=== PATIENT | female | born 1975 | race Caucasian/White ===

== ENCOUNTER 2018-04-25 14:13 | Emergency (ER) | payer SELFPAY ==
[~2018-04-25] VITALS: Ht 180.3 cm; Wt 113.4 kg
[2018-04-25 14:22] VITALS: BP 150/98
[2018-04-25] MEDS ORDERED: IV NORMAL SALINE 1,000ML 1,000 ML IV SCH (14:38)
--- NOTE | 2018-04-25 14:42 | PHYS DOC ---
Past History Past Medical History: No Pertinent History Past Surgical History: Hysterectomy Smoking: Non-smoker Alcohol Use: None Drug Use: None Adult General Chief Complaint Chief Complaint: ABDOMINAL PAIN HPI HPI Patient is a 42 year old female who presents with complaining of abdominal pain and nausea and vomiting. Patient complaining of right sided abdominal pain as a pressure feeling pain for 3 days with 7 episodes of diarrhea every day. Patient complaining of nausea since last night and couple episodes of vomiting. Patient rated her pain 6/10 and states she had the same symptoms with her previous episodes of C. difficile infection. Patient denies taking any recent antibiotic , fever and chills, urinary symptoms, vaginal bleeding or discharge. Review of Systems Review of Systems Constitutional: Denies fever or chills [] Eyes: Denies change in visual acuity, redness, or eye pain [] HENT: Denies nasal congestion or sore throat [] Respiratory: Denies cough or shortness of breath [] Cardiovascular: No additional information not addressed in HPI [] GI: Reports abdominal pain, nausea, vomiting, diarrhea [] : Denies dysuria or hematuria [] Musculoskeletal: Denies back pain or joint pain [] Integument: Denies rash or skin lesions [] Neurologic: Denies headache, focal weakness or sensory changes [] Endocrine: Denies polyuria or polydipsia [] All other systems were reviewed and found to be within normal limits, except as documented in this note. Physical Exam Physical Exam Constitutional: Well developed, well nourished, mild distress, non-toxic appearance. [] HENT: Normocephalic, atraumatic, oropharynx moist, no oral exudates, nose normal. [] Eyes: PERRLA, EOMI, conjunctiva normal, no discharge. [] Neck: Normal range of motion, no tenderness, supple, no stridor. [] Cardiovascular:Heart rate regular rhythm, no murmur [] Lungs & Thorax: Bilateral breath sounds clear to auscultation [] Abdomen: Bowel sounds normal, soft, guarding in right side of abdomen, no tenderness, no masses, no pulsatile masses. [] Skin: Warm, dry, no erythema, no rash. [] Back: No tenderness, no CVA tenderness. [] Extremities: No tenderness, no cyanosis, no clubbing, ROM intact, no edema. [] Neurologic: Alert and oriented X 3, normal motor function, normal sensory function, no focal deficits noted. [] Psychologic: Affect normal, judgement normal, mood normal. [] Current Patient Data Vital Signs Vital Signs Date Time Temp Pulse Resp B/P (MAP) Pulse Ox O2 Delivery O2 Flow Rate FiO2 04/25/18 14:22 99.2 111 20 96 Room Air EKG EKG [] Radiology/Procedures Radiology/[place] [address] IMAGING REPORT Signed PATIENT: MONICA DYKES ACCOUNT: [id number] : 1975 LOCATION: ER AGE: 42 SEX: F EXAM STATUS: REG ER ORD. PHYSICIAN: ELROY SALCIDO MD REASON: right upper abdominal pain and nausea and vomiting PROCEDURE: CT ABD PELV W/ IV CONTRST ONLY EXAM: CT Abdomen and Pelvis with IV contrast CLINICAL HISTORY: ABDOMINAL PAIN, DIARRHEA FOR 3 DAYS. COMPARISON: TECHNIQUE: Helical CT of the abdomen and pelvis was performed following the administration of intravenous contrast. Oral contrast was administered. Axial, coronal and sagittal reformatted images were generated. PQRS compliance statement - One or more of the following individualized dose reduction techniques were utilized for this study: 1. Automated exposure control 2. Adjustment of the mA and/or kV according to patient size 3. Use of iterative reconstruction technique FINDINGS: Lower chest: Dependent opacities in the lower lobes likely scarring/atelectasis. Abdomen and Pelvis: Diffuse hepatic hypoattenuation may be seen with hepatic steatosis. No focal liver lesion. Liver is enlarged. Spleen is unremarkable. Accounting for postcholecystectomy change, no biliary ductal dilatation. Pancreas is unremarkable. Adrenal glands are normal. Symmetric nephrograms. No focal renal lesion. No hydronephrosis. Bladder is decompressed. Mild fat infiltration about the cecum nonspecific possibly colitis. Moderate colonic stool content is seen. Appendix is not seen, likely from prior appendectomy. No small or large bowel dilatation to suggest bowel obstruction. Fat-containing right inguinal hernia is seen. Small fat-containing periumbilical hernia is seen. No abdominal or pelvic ascites. No abdominal or pelvic lymphadenopathy. Bones: Multilevel degenerative changes of the spine are seen. IMPRESSION: 1. Mild fat infiltration about the cecum, suspect colitis, possibly infectious or inflammatory. 2. No evidence of bowel obstruction. The appendix is not seen with pericecal clips, likely prior appendectomy. 3. Hepatomegaly and hepatic steatosis.. 4. Small fat-containing periumbilical hernia is seen. Electronically signed by: Efren Erickson MD (04/25/2018 3:57 PM) [facility] DICTATED AND SIGNED BY: EFREN ERICKSON MD DATE: 04/25/18 9161 CC: NIK MCKEON; ELROY SALCIDO MD ~ Course & Med Decision Making Course & Med Decision Making Pertinent Labs and Imaging studies reviewed. (See chart for details) Evaluation of patient in ER showed 42-year-old male patient with complaining of nausea and diarrhea and abdominal pain. 2 days like her previous episodes of C. difficile infection. Lactic acid was 2.6. She was treated with IV fluid and antibiotic IV was not given because of concern for C. difficile. Patient also had few RBC and deficit urinary and was not treated for possible UTI and twice a day for the culture results. Prescription for vancomycin orally was given and patient instructed to follow-up with her primary care physician tomorrow for the test results and needs for starting medication Dragon Disclaimer Dragon Disclaimer This electronic medical record was generated, in whole or in part, using a voice recognition dictation system. Departure Departure: Impression: Primary Impression: Acute colitis Additional Impressions: Hematuria Elevated liver function tests SIRS (systemic inflammatory response syndrome) Disposition: HOME, SELF-CARE (at 1615) Condition: STABLE Patient Instructions: Clostridium Difficile Infection, Colitis, Upper Respiratory Infection, Adult Additional Instructions: Drink plenty of liquids Follow-up with your primary care physician in 2 days for results of tests for C.Diff Return to ER if not getting better Scripts Ondansetron Hcl (ZOFRAN) 4 Mg Tablet 1 TAB PO Q6HRS for nausea and vomiting, #12 TAB Prov: ELROY SALCIDO MD 04/25/18 Vancomycin Hcl (VANCOMYCIN HCL) 250 Mg Capsule 250 MG PO Q6HRS for C. Diff , #40 CAP Prov: ELROY SALCIDO MD 04/25/18 Problem Qualifiers Additional Impressions: Hematuria Hematuria type: unspecified type Qualified Codes: R31.9 - Hematuria, unspecified ELROY SALCIDO MD Apr 25, 2018 14:41
[2018-04-25 15:00] LABS: BASO # 0.1 x10^3/uL (0.0-0.2); BASO % 1 % (0-3); EOS # 0.3 x10^3/uL (0.0-0.7); EOS % 6 % (0-3); HEMATOCRIT 42.1 % (36.0-47.0); LYMPH # 1.4 x10^3/uL (1.0-4.8); LYMPH % 26 % (24-48); MEAN CORPUSCULAR HEMOGLOBIN 29 pg (25-35); MEAN CORPUSCULAR HGB CONC 33 g/dL (31-37); MEAN CORPUSCULAR VOLUME 87 fL (79-100); MONO # 0.4 x10^3/uL (0.0-1.1); MONO % 8 % (0-9); NEUT # 3.2 x10^3uL (1.8-7.7); NEUT % 59 % (31-73); PLATELET COUNT 281 x10^3/uL (140-400); RED BLOOD COUNT 4.84 x10^6/uL (3.50-5.40); RED CELL DISTRIBUTION WIDTH 14.2 % (11.5-14.5); WHITE BLOOD COUNT 5.4 x10^3/uL (4.0-11.0)
[2018-04-25] MEDS ORDERED: ONDANSETRON PF 4 MG/2 ML VIAL. IV ONE (15:15)
[2018-04-25 15:16] LABS: ALBUMIN 3.7 g/dL (3.4-5.0); ALBUMIN/GLOBULIN RATIO 1.1 (1.0-1.7); CALCIUM 8.9 mg/dL (8.5-10.1); CREATININE 0.7 mg/dL (0.6-1.0); GFR 91.8; POTASSIUM 3.7 mmol/L (3.5-5.1); TOTAL BILIRUBIN 0.2 mg/dL (0.2-1.0); TOTAL PROTEIN 7.1 g/dL (6.4-8.2)
[2018-04-25 15:26] LABS: BARBITURATES NEG (NEG); BENZODIAZEPINES NEG (NEG); CANNABINOIDS NEG (NEG); COCAINE NEG (NEG); METHADONE NEG (NEG); OPIATES POS (NEG); PHENCYCLIDINE NEG (NEG)
[2018-04-25 15:30] LABS: AMPHETAMINE/METHAMPHETAMINE NEG (NEG)
[2018-04-25 15:44] LABS: BILIRUBIN,URINE NEG (NEG); CLARITY,URINE HAZY; COLOR,URINE STRAW; GLUCOSE,URINE 100 mg/dL (NEG); NITRITE,URINE NEG (NEG); UROBILINOGEN,URINE 0.2 mg/dL (0.2 mg/dL)
[2018-04-25 15:45] LABS: BACTERIA,URINE MOD /HPF (0-FEW); SQUAMOUS EPITHELIAL CELL,UR MOD /LPF
[2018-04-25] MEDS ORDERED: IV NORMAL SALINE 1,000ML 1,000 ML IV ONE (15:45)
[2018-04-25] MEDS ORDERED: IOHEXOL 300 MG/ML 75 ML VIAL. IV ONE (15:45)
[2018-04-25] MEDS ORDERED: KETOROLAC 30 MG/ML VIAL. IV ONE (16:00)
--- NOTE | 2018-04-25 16:00 | RAD ---
EXAM: CT Abdomen and Pelvis with IV contrast CLINICAL HISTORY: ABDOMINAL PAIN, DIARRHEA FOR 3 DAYS. COMPARISON: TECHNIQUE: Helical CT of the abdomen and pelvis was performed following the administration of intravenous contrast. Oral contrast was administered. Axial, coronal and sagittal reformatted images were generated. PQRS compliance statement - One or more of the following individualized dose reduction techniques were utilized for this study: 1. Automated exposure control 2. Adjustment of the mA and/or kV according to patient size 3. Use of iterative reconstruction technique FINDINGS: Lower chest: Dependent opacities in the lower lobes likely scarring/atelectasis. Abdomen and Pelvis: Diffuse hepatic hypoattenuation may be seen with hepatic steatosis. No focal liver lesion. Liver is enlarged. Spleen is unremarkable. Accounting for postcholecystectomy change, no biliary ductal dilatation. Pancreas is unremarkable. Adrenal glands are normal. Symmetric nephrograms. No focal renal lesion. No hydronephrosis. Bladder is decompressed. Mild fat infiltration about the cecum nonspecific possibly colitis. Moderate colonic stool content is seen. Appendix is not seen, likely from prior appendectomy. No small or large bowel dilatation to suggest bowel obstruction. Fat-containing right inguinal hernia is seen. Small fat-containing periumbilical hernia is seen. No abdominal or pelvic ascites. No abdominal or pelvic lymphadenopathy. Bones: Multilevel degenerative changes of the spine are seen. IMPRESSION: 1. Mild fat infiltration about the cecum, suspect colitis, possibly infectious or inflammatory. 2. No evidence of bowel obstruction. The appendix is not seen with pericecal clips, likely prior appendectomy. 3. Hepatomegaly and hepatic steatosis.. 4. Small fat-containing periumbilical hernia is seen. Electronically signed by: Efren Grijalva MD (04/25/2018 3:57 PM) [facility]
[2018-04-25] MEDS ORDERED: ONDA4TAB7 PO (16:17)
[2018-04-25] MEDS ORDERED: VANC250C3 PO (16:17)
== END 2018-04-25 16:20 | disposition home or self-care (01) ==
LOC: ER 14:13
DX: K52.9 Noninfective gastroenteritis and colitis, unspecified (principal); R31.9 Hematuria, unspecified; R79.89 Other specified abnormal findings of blood chemistry; R65.10 Systemic inflammatory response syndrome (SIRS) of non-infectious origin without acute organ dysfunction; Z90.710 Acquired absence of both cervix and uterus
CPT/HCPCS: 36415; 74177; 80053; 80307; 81001; 83605; 83690; 85025; 87086; 87493; 96361; 96374; 96375; 99284; J1885; J2405; Q9967; J7030